=== PATIENT | male | born 1985 | race Caucasian/White ===

== ENCOUNTER 2025-05-10 04:01 | Emergency (ER) | payer BC ==
[2025-05-10] MEDS: Amoxicillin/Clavulanate K 875-125 MG Tab PO ONE (04:32)
== END 2025-05-10 04:35 | disposition home or self-care (01) ==
LOC: MW.ED 04:01
DX: L02.31 Cutaneous abscess of buttock (principal); Z88.8 Allergy status to other drugs, medicaments and biological substances; Z79.899 Other long term (current) drug therapy
CPT/HCPCS: 99283; A9270; 99282